=== PATIENT | male | born 1975 | race Caucasian/White ===

== ENCOUNTER 2017-07-20 12:58 | Emergency (ER) | payer BC ==
--- NOTE | 2017-07-20 13:20 | ERNOTE ---
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 Patient does not have a history of headaches at all, denies any other symptoms. The last couple of days he has had two episodes of feeling completely drained and exhausted to the point that he had to lay down which Date (Duration): 07/20/17 Time (Timing): 12:40 Onset: gradual onset Severity: mild - Character of Deficits New weakness: Absent: RUE, RLE, LUE, LLE Altered sensation: Present: LUE Additional Deficits: Present: vision problems. Absent: impaired speech, difficulty swallowing, decrease ability to stand, off balance Baseline Cognition: Present: alert, oriented x 4 Baseline Gait: Present: walks w/o assistance Associated Symptoms: Denies: fever/chills, sweating, chest pain, neck/back pain , headache, altered mental status Prior Treament: Denies: recently seen, similar symptoms before Review of Systems - Review of Systems Constitutional: Present: See HPI. Absent: recent illness, fever EYE: Present: see HPI ENT: Absent: nose congestion, sore throat Respiratory: Absent: shortness of breath Cardiology: Absent: chest pain Gastrointestinal/Abdominal: Absent: nausea, vomiting, abdominal pain Genitourinary: Present: no symptoms reported Musculoskeletal: Present: no symptoms reported Skin: Absent: rash Neurological: Present: See HPI, headache, numbness. Absent: weakness - Patient's Past Medical History Patient History - Medical: No pertinent hx Patient History - Cardiac/Respiratory: No pertinent hx Patient History - Cancer: No Hx of Cancer Patient History - Surgical Procedures: Total Hip Replacement Patient History - Other: None - Social History Living Situations: home Abuse History: No History of abuse Psych History: No pertinent hx Smoking Status: Never smoker Alcohol Use: none Drug Use: none - Immunizations Immunizations Up to Date: Yes Hx Pneumococcal Vaccination: No History of Influenza Vaccine: No Physical Exam - Physical Exam General Appearance: Present: wd/wn, alert, no apparent distress Head Exam: Present: normal inspection, no evidence of injury Eye Exam: Normal inspection: bilateral, PERRL: bilateral, EOMI: bilateral Ears, Nose, Throat: Present: normal ENT inspection, normal pharynx Neck: Present: normal inspection, nontender, supple Respiratory: Present: no respiratory distress, normal breath sounds, no accessory muscle use, chest nontender, lungs clear Cardiovascular/Chest: Present: regular rate, rhythm, no murmur Gastrointestinal/Abdominal: Present: nontender, nondistended, soft Extremity Exam: Present: normal inspection Neurological Exam: Present: alert, oriented, normal mood/affect, no motor/ sensory deficits, 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 - Vital Signs Patient's Vital Signs:: I have reviewed the patient's vital signs. Vital Signs: Vital Signs 07/20/17 13:02 Temperature 36.9 C Pulse Rate 68 Respiratory 14 Rate Blood Pressure 124/82 O2 Sat by Pulse 96 Oximetry - EKG EKG: NSR, other - poor R progression, no acute changes compared to prior EKG read: Interp. by me - CT/Ultrasound CT/Ultrasound Narrative: CT head: no acute - Progress/Reassessment Progress Note-Subjective: 07/20/17 14:[address] results with radiologist discussed results with patient and , vision is getting better, states that patient has headaches about 3-4 times a year and usually reports 'static vision' at that time 07/20/17 14:45 discussed lab results with patient and , vision changes resolved, mild headache, doesn't want pain meds Departure Clinical Impression: Vision changes - Departure Disposition: Home self-care Condition: Good Instructions: Blurred Vision Additional Instructions: follow up with an eye doctor and a neurologist Referrals: Emeterio Luong DO [Primary Care Provider] - Luke Clements MD [Consulting Physician] -
[2017-07-20 13:53] LABS: Hematocrit 38.8 % (42.0-52.0); Hemoglobin 13.3 gm/dL (13.5-18.0); Mean Cell Volume 88.2 fl (78-100); Mean Corpuscular Hemoglobin 30.2 pg (27-31); Mean Corpuscular Hgb Conc 34.3 g/dl (32-36); Mean Platelet Volume 9.1 fl (6.0-9.5); Neutrophil # 3.1 K/mm3 (1.3-6.0); Neutrophil % 55.9 % (42-75.0); Platelet Count 184 K/mm3 (150-450); Red Cell Distribution Width 13.2 % (11.5-14.0); White Blood Count 5.5 K/mm3 (4.0-10.5)
[2017-07-20 14:10] LABS: ALT 28 U/L (19-67); AST 17 U/L (0-48); Albumin * 3.8 gm/dl (3.4-5.0); Alkaline Phosphatase * 46 U/L (50-170); Anion Gap 13.2 mmol/L (6.8-13.8); BUN/Creatinine Ratio 18.2 (9.0-21.6); Bilirubin, Total 0.3 mg/dL (0.0-1.1); Blood Urea Nitrogen 16 mg/dL (6-23); Ca. Corrected For Albumin 8.2 mg/dL (8.4-10.2); Calcium * 8.4 mg/dL (7.9-10.9); Carbon Dioxide 27.7 mmol/L (24-32.6); Chloride 105 mmol/L (97-106); Glucose * 92 mg/dL (70-110); Potassium 3.9 mmol/L (3.4-4.6); Sodium 142 mmol/L (132-142); Total Protein 6.8 gm/dL (6.2-8.2); Troponin I Less than 0.017 ng/ml (0.00-0.10)
[2017-07-20 16:11] VITALS: BP 107/71
== END 2017-07-20 14:50 | disposition home or self-care (01) ==
LOC: ER 12:58
DX: H53.9 Unspecified visual disturbance (principal)